=== PATIENT | male | born 1975 | race Two or more races ===

== ENCOUNTER → 2017-10-19 | Outpatient (REF) | payer OTHER | LOC: M LAB REF 13:35 | DX: J02.9 Acute pharyngitis, unspecified (principal) ==

== ENCOUNTER → 2021-03-21 | Outpatient (CLI) | payer OTHER | LOC: M OUTALCOH 07:36 | PROVIDERS: ATTEND Psychiatry & Neurology Psychiatry | DX: Z03.89 Encounter for observation for other suspected diseases and conditions ruled out (principal) ==

== ENCOUNTER 2021-04-03 14:00 | Outpatient (RCR) | payer OTHER | END 2021-04-08 | LOC: M OUTALCOH 14:00 | PROVIDERS: ATTEND Psychiatry & Neurology Psychiatry | DX: Z03.89 Encounter for observation for other suspected diseases and conditions ruled out (principal) ==

== ENCOUNTER → 2021-05-08 | Outpatient (REF) | payer OTHER | LOC: M LAB REF 16:02 | PROVIDERS: ATTEND Physician Assistant | DX: R05 Cough (principal); R50.9 Fever, unspecified; Z20.828 Contact with and (suspected) exposure to other viral communicable diseases ==

== ENCOUNTER → 2021-06-16 | Outpatient (CLI) | payer OTHER | LOC: M OUTALCOH 07:54 | PROVIDERS: ATTEND Psychiatry & Neurology Psychiatry | DX: Z03.89 Encounter for observation for other suspected diseases and conditions ruled out (principal) ==

== ENCOUNTER 2021-06-23 10:43 | Outpatient (RCR) | payer OTHER | END 2021-07-09 | LOC: M OUTALCOH 10:43 | PROVIDERS: ATTEND Psychiatry & Neurology Psychiatry | DX: Z03.89 Encounter for observation for other suspected diseases and conditions ruled out (principal) ==

== ENCOUNTER 2021-07-10 11:04 | Outpatient (RCR) | payer OTHER | END 2021-08-08 | LOC: M OUTALCOH 11:04 | PROVIDERS: ATTEND Psychiatry & Neurology Psychiatry | DX: Z03.89 Encounter for observation for other suspected diseases and conditions ruled out (principal) ==

== ENCOUNTER → 2021-11-16 | Outpatient (CLI) | payer OTHER ==
[2021-11-16 08:28] LABS: ALBUMIN 3.1 GM/DL (3.2-5.2); ALT/SGPT 36 U/L (12-78); BILIRUBIN,TOTAL 1.5 MG/DL (0.2-1.0); BLOOD UREA NITROGEN 10 MG/DL (7-18); CALCIUM LEVEL 8.3 MG/DL (8.5-10.1); CARBON DIOXIDE LEVEL 28 MEQ/L (21-32); CHLORIDE LEVEL 107 MEQ/L (98-107); CHOLESTEROL LEVEL 107 MG/DL (<200); CHOLESTEROL RISK RATIO 3.343 (<5); CREATININE FOR GFR 1.01 MG/DL (0.70-1.30); FERRITIN 103 NG/ML (26-388); FREE T4 2.32 NG/DL (0.76-1.46); GLOMERULAR FILTRATION RATE > 60.0 (>60); GLUCOSE, FASTING 110 MG/DL (70-100); HDL CHOLESTEROL 32 MG/DL (>40); LDL CHOLESTEROL 67 MG/DL (<100); NON-HDL-C 75 MG/DL; NT-PRO BNP 5733 PG/ML (<125); POTASSIUM SERUM 4.5 MEQ/L (3.5-5.1); SODIUM LEVEL 139 MEQ/L (136-145); THYROID STIMULATING HORMONE < 0.005 uIU/ML (0.358-3.740); TOTAL PROTEIN 7.7 GM/DL (6.4-8.2); TRIGLYCERIDES LEVEL 40 MG/DL (<150)
== END ==
LOC: M LAB 07:18
PROVIDERS: ATTEND Internal Medicine Hematology
DX: I50.41 Acute combined systolic (congestive) and diastolic (congestive) heart failure (principal)

== ENCOUNTER → 2021-11-23 | Outpatient (CLI) | payer OTHER | LOC: M RAD 12:18 | PROVIDERS: ATTEND Internal Medicine Hematology | DX: I50.41 Acute combined systolic (congestive) and diastolic (congestive) heart failure (principal); J91.8 Pleural effusion in other conditions classified elsewhere; R18.8 Other ascites ==

== ENCOUNTER → 2022-01-24 | Outpatient (CLI) | payer OTHER ==
[2022-01-24 14:02] LABS: ALBUMIN 3.4 GM/DL (3.2-5.2); ALT/SGPT 30 U/L (12-78); BILIRUBIN,TOTAL 0.7 MG/DL (0.2-1.0); BLOOD UREA NITROGEN 6 MG/DL (7-18); CALCIUM LEVEL 9.1 MG/DL (8.5-10.1); CARBON DIOXIDE LEVEL 31 MEQ/L (21-32); CHLORIDE LEVEL 103 MEQ/L (98-107); CREATININE FOR GFR 0.82 MG/DL (0.70-1.30); FREE T3 6.1 PG/ML (2.2-4.0); FREE T4 2.13 NG/DL (0.76-1.46); GLOMERULAR FILTRATION RATE > 60.0 (>60); GLUCOSE, FASTING 111 MG/DL (70-100); NT-PRO BNP 2004 PG/ML (<125); POTASSIUM SERUM 3.9 MEQ/L (3.5-5.1); SODIUM LEVEL 140 MEQ/L (136-145); THYROID STIMULATING HORMONE < 0.005 uIU/ML (0.358-3.740); TOTAL PROTEIN 8.2 GM/DL (6.4-8.2)
== END ==
LOC: M PLALAB 11:21
PROVIDERS: ATTEND Internal Medicine Hematology
DX: I50.41 Acute combined systolic (congestive) and diastolic (congestive) heart failure (principal)

== ENCOUNTER → 2022-03-20 | Outpatient (CLI) | payer OTHER | LOC: M RAD 13:32 | PROVIDERS: ATTEND Internal Medicine Endocrinology, Diabetes & Metabolism | DX: E05.00 Thyrotoxicosis with diffuse goiter without thyrotoxic crisis or storm (principal) | CPT/HCPCS: 78012; A9516 ==

== ENCOUNTER → 2022-03-23 | Outpatient (CLI) | payer OTHER ==
[2022-03-23 09:33] LABS: FREE T4 2.05 NG/DL (0.76-1.46); THYROID STIMULATING HORMONE < 0.005 uIU/ML (0.358-3.740)
[2022-03-23 09:48] LABS: TOTAL T3 156.7 NG/DL (60.0-181.0)
== END ==
LOC: M LAB 07:56
PROVIDERS: ATTEND Internal Medicine Endocrinology, Diabetes & Metabolism
DX: E05.00 Thyrotoxicosis with diffuse goiter without thyrotoxic crisis or storm (principal)

== ENCOUNTER → 2023-03-02 | Outpatient (CLI) | payer OTHER ==
[2023-03-02 09:28] LABS: HEMOGLOBIN 13.9 g/dl (13.5-17.5); MEAN CORPUSCULAR HEMOGLOBIN 30.8 pg (27.0-33.0); MEAN CORPUSCULAR HGB CONC 33.1 g/dl (32.0-36.5); MEAN CORPUSCULAR VOLUME 93.1 fl (80.0-96.0); PLATELET COUNT, AUTOMATED 221 10^3/uL (150-450); RED BLOOD COUNT 4.51 10^6/uL (4.30-6.10); WHITE BLOOD COUNT 6.5 10^3/uL (4.0-10.0)
[2023-03-02 09:52] LABS: HEMOGLOBIN A1c 5.3 % (4.0-6.0)
[2023-03-02 09:59] LABS: CREATININE, URINE 169.5 MG/DL; MALB URINE SIEMENS < 3.0 MG/L; MAU/CREAT RATIO 1.7 MCG/MG (0.0-30.0)
[2023-03-02 10:00] LABS: C REACTIVE PROTEIN QUANTITATIV < 0.40 MG/DL (<1.0)
[2023-03-02 10:02] LABS: ALBUMIN 4.1 G/DL (3.2-5.2); ALKALINE PHOSPHATASE 82 U/L (46-116); ALT/SGPT 21 U/L (7.0-40); AST/SGOT 19 U/L (<34); BILIRUBIN,TOTAL 0.9 MG/DL (0.3-1.2); BLOOD UREA NITROGEN 14 MG/DL (9-23); CALCIUM LEVEL 8.9 MG/DL (8.5-10.1); CARBON DIOXIDE LEVEL 30 MMOL/L (20-31); CHLORIDE LEVEL 102 MMOL/L (98-107); CHOLESTEROL LEVEL 209 MG/DL (<200); CHOLESTEROL RISK RATIO 2.58 (<5); CREATININE FOR GFR 1.08 MG/DL (0.70-1.30); GLOMERULAR FILTRATION RATE > 60.0 (>60); GLUCOSE, FASTING 86 MG/DL (60-100); HDL CHOLESTEROL 80.8 MG/DL (>40); LDL CHOLESTEROL 116.4 MG/DL (<100); NON-HDL-C 128.2 MG/DL; POTASSIUM SERUM 3.8 MMOL/L (3.5-5.1); SODIUM LEVEL 135 MMOL/L (136-145); TOTAL PROTEIN 7.8 G/DL (5.7-8.2); TRIGLYCERIDES LEVEL 59 MG/DL (<150)
[2023-03-02 10:03] LABS: FREE T3 2.8 PG/ML (2.3-4.2); THYROID STIMULATING HORMONE 1.088 uIU/ML (0.55-4.78); TOTAL 25(OH) VITAMIN D 14.1 NG/ML (20.0-100.0)
[2023-03-02 10:04] LABS: FREE T4 1.03 NG/DL (0.89-1.76); VITAMIN B12 LEVEL 276 PG/ML (211-911)
[2023-03-04 19:07] LABS: INSULIN LEVEL 9.3 uIU/mL (2.6-24.9)
== END ==
LOC: M LAB 08:44
PROVIDERS: ATTEND Internal Medicine Hematology
DX: E05.90 Thyrotoxicosis, unspecified without thyrotoxic crisis or storm (principal)

== ENCOUNTER 2023-05-09 10:35 | Day surgery (SDC) | payer OTHER ==
[~2023-05-09] VITALS: Ht 177.8 cm; Wt 99.5 kg
[~2023-05-09 10:35] MED LIST: CARV25TA PO; FURO40TA2 AD; LISI10TA22 PO; METH25TAB PO; NS 1,000 ML IV ONE; SILD50TA2 PO; SPIR-10 PO; TEST75GE TOP
[2023-05-09] MEDS ORDERED: propofoL 200 MG/20 ML VIAL As Ordered ONE (11:18)
[2023-05-09] MEDS ORDERED: LIDOCAINE 2% 100MG/5ML SDV (FOR ANES.) As Ordered ONE (11:18)
[2023-05-09 12:25] VITALS: BP 166/95; TEMP 97.4; O2SAT 99
== END 2023-05-09 12:34 | disposition home or self-care (01) ==
LOC: M OPP 10:35
PROVIDERS: ATTEND Surgery
DX: Z12.11 Encounter for screening for malignant neoplasm of colon (principal); Z79.83 Long term (current) use of bisphosphonates; Z79.890 Hormone replacement therapy